=== PATIENT | female | born 1970 | race Caucasian/White ===

== ENCOUNTER → 2021-02-27 | Outpatient (CLI) | payer OTHER ==
--- NOTE | 2021-02-27 10:39 | RAD ---
EXAM: Pelvis and right hip, 2 views; left shoulder, 3 views. HISTORY: Pain. COMPARISON: None. FINDINGS: Pelvis and right hip: A frontal view of the pelvis and 2 views of the right hip are obtained. There i s a transitional lumbosacral segment. The right transverse process at this level is sacralized and fu sed with the underlying sacrum. This is a normal variant. The femoral heads are normal in configurati on and seated appropriately. The sacroiliac joints are intact. Left shoulder: 3 views of the left shoulder obtained. There is no fracture, dislocation or subluxatio n. There is a tiny benign-appearing osseous excrescence along the inferior aspect of the mid clavicle . IMPRESSION: 1. No acute osseous finding. 2. Transitional lumbosacral segment, a normal variant. Electronically signed by: Jazmin Deng MD (02/27/2021 10:36 AM) [id number]
== END ==
LOC: RAD 10:06
PROVIDERS: ATTEND Anesthesiology Pain Medicine
DX: M25.551 Pain in right hip (principal); M25.512 Pain in left shoulder
CPT/HCPCS: 73030; 73502